=== PATIENT | female | born 1960 | race Caucasian/White ===

== ENCOUNTER 2022-04-25 20:29 | Emergency (ER) | payer BC, OTHER ==
--- NOTE | 2022-04-25 21:05 | ERPHSYRPT ---
- History of Present Illness Time Seen by Provider: 04/25/22 21:05 Source: patient Exam Limitations: no limitations Patient Subjective Stated Complaint: pt states "I fell out of the shower and hit my wrist off the wall." Triage Nursing Assessment: pt ambulatory to bed by self, alert oriented x3, pt c/o L wrist pain after falling out of the shower, pt tearful in triage and rating pain 10/10, pt has swelling noted around L wrist, pt holding wrist with other hand and is unable to move it, no bruising noted Physician History: This is a right-handed 61-year-old white female who was in the shower and slipped causing her left hand and wrist to hit the wall. She has pain and some swelling to her left wrist. She does have range of motion. She is neurovascularly intact. She has no other complaints of pain Occurred: just prior to arrival Method of Injury: other (Fell into wall) Quality: constant, aching Severity of Pain-Max: moderate Severity of Pain-Current: moderate Extremities Pain Location: wrist: left Modifying Factors: Improves With: movement Associated Symptoms: none Allergies/Adverse Reactions: Sulfa (Sulfonamide Antibiotics) [Sulfa(Sulfonamide Antibiotics)] Allergy (Interm ediate, Verified 04/25/22 20:47) Hives promethazine [From Phenergan] Adverse Reaction (Intermediate, Verified 04/25/22 20:47) MAKES ME HYPER Home Medications: ALPRAZolam [Xanax 0.5 mg] 0.5 mg PO TID 05/30/16 [History] Methylphenidate HCl [Ritalin] 5 mg PO DAILY 05/30/16 [History] Trazodone HCl 300 mg PO HS 05/30/16 [History] Venlafaxine HCl [Effexor Xr] 150 mg PO DAILY 05/30/16 [History] Hx Tetanus, Diphtheria Vaccination/Date Given: No Hx Influenza Vaccination/Date Given: Yes Hx Pneumococcal Vaccination/Date Given: No Immunizations Up to Date: Yes Travel Risk - International Travel Have you traveled outside of the country in past 3 weeks: No - Coronavirus Screening Are you exhibiting any of the following symptoms?: No Close contact with a COVID-19 positive Pt in past 14-21 Days: No - Vaccine Status Have you recieved a Covid-19 vaccination: Yes [employer]: [employer] - Vaccination Dates Date of 2cond Vaccination (if applicable): 2019 - Review of Systems Constitutional: No Symptoms Eyes: No Symptoms Ears, Nose, & Throat: No Symptoms Respiratory: No Symptoms Cardiac: No Symptoms Abdominal/Gastrointestinal: No Symptoms Genitourinary Symptoms: No Symptoms Musculoskeletal: Injury (Left wrist) Skin: No Symptoms Neurological: No Symptoms Psychological: No Symptoms Endocrine: No Symptoms Hematologic/Lymphatic: No Symptoms Immunological/Allergic: No Symptoms All Other Systems: Reviewed and Negative - Past Medical History Pertinent Past Medical History: Yes Neurological History: No Pertinent History ENT History: No Pertinent History Cardiac History: No Pertinent History Respiratory History: No Pertinent History Endocrine Medical History: No Pertinent History Musculoskeletal History: No Pertinent History GI Medical History: No Pertinent History History: No Pertinent History Psycho-Social History: Anxiety, Depression Female Reproductive Disorders: No Pertinent History - Past Surgical History Past Surgical History: No Neuro Surgical History: No Pertinent History Cardiac: No Pertinent History Respiratory: No Pertinent History Gastrointestinal: No Pertinent History Genitourinary: No Pertinent History Musculoskeletal: No Pertinent History Female Surgical History: No Pertinent History - Social History Smoking Status: Never smoker Exposure to second hand smoke: No Drug Use: none Patient Lives Alone: No - Nursing Vital Signs Nursing Vital Signs: Initial Vital Signs Temperature 97.4 F 04/25/22 20:47 Pulse Rate 78 04/25/22 20:47 Respiratory Rate 18 04/25/22 20:47 O2 Sat by Pulse Oximetry 99 04/25/22 20:47 Pain Scale Pain Intensity 10 - Physical Exam General Appearance: no apparent distress, alert, anxiety Eyes, Ears, Nose, Throat Exam: normal ENT inspection, moist mucous membranes Neck Exam: normal inspection, non-tender, supple, full range of motion Cardiovascular/Respiratory Exam: chest non-tender, no respiratory distress Abdominal Exam: non-tender Back Exam: normal inspection, normal range of motion, No CVA tenderness, No vertebral tenderness Shoulder Exam: normal inspection, non-tender, no evidence of injury, normal ROM Elbow/Forearm Exam: normal inspection, non-tender, no evidence of injury, normal ROM Wrist Exam: normal ROM, soft tissue tenderness (Left wrist), swelling (Left wrist), No deformity Hand Exam: normal inspection, non-tender, no evidence of injury, normal ROM Neuro/Tendon Exam: normal sensation, normal motor functions, normal tendon functions, responds to pain, no evidence tendon injury Mental Status Exam: alert, oriented x 3, cooperative Skin Exam: normal color, warm, dry SpO2 Interpretation: normal SpO2: 99 O2 Delivery: Room Air Procedures - Splinting Time of Procedure: 22:19 Location of Splint: Left, Wrist Type of Splint: Orthoglass Short Arm Splint Splint Applied By: ED Nurse Pre-Proc Neuro Vasc Exam: normal Post-Proc Neuro Vasc Exam: neurovascular intact, good alignment, unchanged from pre-exam - Course Nursing assessment & vital signs reviewed: Yes Ordered Tests: Active Orders 24 hr Category Date Time Status Sling Application STAT Care 04/25/22 22:17 Ordered Splint STAT Care 04/25/22 22:17 Ordered WRIST (MIN 3 VIEWS) Stat Exams 04/25/22 20:53 Taken Medication Summary Discontinued Medications Generic Name Dose Route Start Last Admin Trade Name Freq PRN Reason Stop Dose Admin Oxycodone/Acetaminophen 1 tab 04/25/22 21:31 04/25/22 21:34 Oxycodone Hcl/Apap 5 Mg/325 Mg Tablet PO 04/25/22 21:32 1 tab STAT STA Administration Oxycodone/Acetaminophen Confirm 04/25/22 21:34 Oxycodone Hcl/Apap 5 Mg/325 Mg Tablet Administered 04/25/22 21:35 Dose 1 tab .ROUTE .STK-MED ONE - Progress Progress: improved, pain not gone completely Progress Note: 04/25/22 22:18 X-ray left wrist shows ulnar styloid process fracture. Minimally displaced left distal radius fracture Counseled pt/family regarding: diagnosis, need for follow-up, rad results - Departure Departure Disposition: Home Clinical Impression: Fracture of left radius and ulna Condition: Stable Critical Care Time: No Additional Instructions: Follow-up tomorrow morning, 04/26/2022, at 8 AM at [facility] orthopedic clinic. It is a walk-in clinic. You do not need to have an appointment. Use sling for comfort. Ice pack to area 3 times a day. Take your medication as prescribed.
[2022-04-25] MEDS ORDERED: PERCOCET TABLET 5/325MG PO STA ×2 (21:31→22:21)
[2022-04-25] MEDS ORDERED: PERCOCET TABLET 5/325MG ONE ×2 (21:34→22:29)
[2022-04-25 22:11] VITALS: BP 151/76; PULSE 75; O2SAT 99
--- NOTE | 2022-04-26 08:56 | XRAY ---
Indication: Pain following fall. Comparison: None 3 view left wrist demonstrates comminuted, displaced, and angulated fracture distal metadiaphysis radius with soft tissue swelling. 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 Comment: Fracture not reported by interpreting ER clinician. Telephone report was given to Dr. Crane at 0850 hrs. on April 26, 2022.
== END 2022-04-25 22:39 | disposition home or self-care (01) ==
LOC: ED 20:29
DX: S52.612A Displaced fracture of left ulna styloid process, initial encounter for closed fracture (principal); S52.502A Unspecified fracture of the lower end of left radius, initial encounter for closed fracture; W18.2XXA Fall in (into) shower or empty bathtub, initial encounter; Y93.E1 Activity, personal bathing and showering; Y92.002 Bathroom of unspecified non-institutional (private) residence as the place of occurrence of the external cause; Z79.891 Long term (current) use of opiate analgesic; Z79.899 Other long term (current) drug therapy
CPT/HCPCS: 29125; 73110; 99283; A9270-GY